=== PATIENT | female | born 1995 | race African-American/Black ===

== ENCOUNTER 2016-10-09 12:00 | Observation (INO) | payer MEDICAID ==
[~2016-10-09] VITALS: Ht 160 cm; Wt 65.8 kg
[2016-10-09] MEDS ORDERED: LACTATED RINGER'S 1,000 ML IV ONE (12:53)
[2016-10-09] MEDS ORDERED: TERBUTALINE SULFATE 1 MG/ML 1ML VIAL SC ONE (12:54)
[2016-10-09] MEDS ORDERED: TERBUTALINE SULFATE 1 MG/ML 1ML VIAL SC SCH (13:00)
[2016-10-09 13:44] LABS: Urine Bilirubin Negative (Negative); Urine Blood Negative /uL (Negative); Urine Color Colorless (Yellow); Urine Glucose Normal (Normal); Urine Ketone Negative (Negative); Urine Nitrite Negative (Negative); Urine RBC 3 /hpf (0 - 4); Urine Squamous Epithelial Cell FEW /hpf (<5); Urine Urobilinogen Normal (Negative)
== END 2016-10-09 15:15 | disposition home or self-care (01) | DRG 566 ==
LOC: LDRP 12:00
PROVIDERS: ADMIT Obstetrics & Gynecology; ATTEND Obstetrics & Gynecology
DX: O23.43 Unspecified infection of urinary tract in pregnancy, third trimester (principal); O60.03 Preterm labor without delivery, third trimester; Z3A.30 30 weeks gestation of pregnancy
CPT/HCPCS: 59025; 81001; 81002; 96360; 96361; 96372; G0378; G0434; J3105; 96365; 96366

== ENCOUNTER 2016-10-14 14:05 | Observation (INO) | payer MEDICAID | END 2016-10-14 15:37 | disposition home or self-care (01) | DRG 566 | LOC: LDRP 14:05 | PROVIDERS: ADMIT Specialist; ATTEND Specialist | DX: O62.9 Abnormality of forces of labor, unspecified (principal); Z3A.31 31 weeks gestation of pregnancy | CPT/HCPCS: 59025; 76815; 81002; G0378 ==

== ENCOUNTER 2016-10-17 19:50 | Observation (INO) | payer MEDICAID ==
[2016-10-17] MEDS ORDERED: TERBUTALINE SULFATE 1 MG/ML 1ML VIAL SC ONE (21:09)
[2016-10-17] MEDS ORDERED: TERBUTALINE SULFATE 1 MG/ML 1ML VIAL SC PRN (21:15)
[2016-10-17 21:22] LABS: Urine Bilirubin Negative (Negative); Urine Blood Negative /uL (Negative); Urine Color Yellow (Yellow); Urine Glucose Normal (Normal); Urine Ketone Negative (Negative); Urine Mucus FEW (None Seen); Urine Nitrite Negative (Negative); Urine RBC 1 /hpf (0 - 4); Urine Squamous Epithelial Cell MOD /hpf (<5); Urine Urobilinogen Normal (Negative); Urine pH 6.5 (5.0-8.0)
== END 2016-10-17 22:05 | disposition home or self-care (01) | DRG 566 ==
LOC: LDRP 19:50
PROVIDERS: ADMIT Obstetrics & Gynecology; ATTEND Obstetrics & Gynecology
DX: O62.9 Abnormality of forces of labor, unspecified (principal); Z3A.31 31 weeks gestation of pregnancy
CPT/HCPCS: 59025; 76815; 81001; 81002; 96372; G0378; J3105

== ENCOUNTER 2016-10-26 17:25 | Observation (INO) | payer MEDICAID ==
[2016-10-26] MEDS ORDERED: NIFEdipine 10 MG CAP ONE (18:08)
[2016-10-26] MEDS ORDERED: NIFEdipine 10 MG CAP PO ONE (18:15)
[2016-10-26] MEDS ORDERED: LACTATED RINGER'S 1,000 ML IV ONE (18:15)
== END 2016-10-26 19:14 | disposition home or self-care (01) | DRG 566 ==
LOC: LDRP 17:25
PROVIDERS: ADMIT Specialist; ATTEND Specialist
DX: O26.893 Other specified pregnancy related conditions, third trimester (principal); M54.9 Dorsalgia, unspecified; Z3A.33 33 weeks gestation of pregnancy
CPT/HCPCS: 59025; 76815; 81002; G0378; 96365

== ENCOUNTER 2016-12-05 01:35 | Inpatient (IN) | payer MEDICAID ==
[2016-12-05] VITALS (16 sets, daily range): BP systolic 100–127; BP diastolic 57–82
[~2016-12-05] VITALS: Ht 160 cm; Wt 68.5 kg
[2016-12-05] MEDS ORDERED: LACTATED RINGER'S 1,000 ML IV SCH ×2 (01:56→08:35)
[2016-12-05] MEDS ORDERED: LACT. RINGERS/OXYTOCIN 20UNITS 1,000 ML IV SCH (01:56)
[2016-12-05] MEDS ORDERED: NALBUPHINE HCL 10 MG/1ml INJECTION IV PRN (02:00)
[2016-12-05] MEDS ORDERED: DERMOPLAST 60ML BOTTLE TOP PRN (02:00)
[2016-12-05] MEDS ORDERED: PHISODERM TOP SOLN 240ML BTL TOP PRN (02:00)
[2016-12-05] MEDS ORDERED: LIDOCAINE 2%HCL (LOCAL ANESTH.) INJ 20ML MDV IJ PRN (02:00)
[2016-12-05] MEDS ORDERED: METHYLERGONOVINE MALEATE 0.2 MG/ML AMP IM PRN (02:00)
[2016-12-05] MEDS ORDERED: WITCH HAZEL-GLYCERIN PAD TOP PRN (02:00)
[2016-12-05 02:24] LABS: Basophils # (auto) 0 uL; Basophils % (auto) 0.3 % (0.0-2.0); DEFINITIVE VIEW TRANSMISSION; Eosinophils # (auto) 0.3 uL; Eosinophils % (auto) 2.5 % (0.0-7.0); Hematocrit 33.3 % (36.0-46.0); Hemoglobin 10.5 g/dL (12.2-16.2); Lymphocytes # (auto) 2.1 uL; Lymphocytes % (auto) 18.5 % (10.0-50.0); Mean Corpuscular Hemoglobin 21.6 pg (28.0-32.0); Mean Corpuscular Hgb Conc. 31.6 g/dL (32.0-36.0); Mean Corpuscular Volume 68.5 fL (80.0-100.0); Mean Platelet Volume 8.5 fL (7.4-10.4); Monocytes # (auto) 1.1 uL; Monocytes % (auto) 9.4 % (0.0-12.0); Neutrophils % (auto) 69.3 % (37.0-80.0); Platelet Count (auto) 322 10^3/uL (140-450); Red Cell Distribution Width 14.2 % (11.6-16.0); White Blood Cell 11.6 10^3/uL (4.4-10.8)
[2016-12-05 02:45] LABS: Albumin 2.5 g/dL (3.4-5.0); BUN/Creatinine Ratio 10.9; Bilirubin, Total 0.3 mg/dL (0.2-1.0); Calcium 8.5 mg/dL (8.5-10.1); Potassium 3.7 mmol/L (3.5-5.1); Total Protein 6.7 g/dL (6.4-8.2)
[2016-12-05 02:58] LABS: INR 0.97 (0.9-1.15); Partial Thromboplastin Time 25.7 sec (22.64-33.71); Prothrombin Time 10.5 sec (9.37-12.3)
[2016-12-05 04:43] LABS: Urine Bilirubin Negative (Negative); Urine Color Yellow (Yellow); Urine Glucose Normal (Normal); Urine Ketone Negative (Negative); Urine Nitrite Negative (Negative); Urine RBC 261 /hpf (0 - 4); Urine Squamous Epithelial Cell MANY /hpf (<5); Urine Urobilinogen Normal (Negative); Urine WBC Clumps PRESENT /hpf (None Seen); Urine pH 7.5 (5.0-8.0)
[2016-12-05 04:44] LABS: Urine Blood 3+ /uL (Negative)
[2016-12-05] MEDS ORDERED: fentaNYL CITRATE 100 MCG/2 ML VL ONE ×2 (07:10→08:51)
[2016-12-05] MEDS ORDERED: MORPHINE SULF(PF) 0.5MG/ML 10ML VIAL ONE (07:10)
[2016-12-05] MEDS ORDERED: MIDAZOLAM HCL 1MG/1ML-2 ML VIAL ONE ×2 (07:42→09:07)
[2016-12-05] MEDS ORDERED: ONDANSETRON HCL 4 MG/2 ML VIAL IV PRN ×2 (08:45)
[2016-12-05] MEDS ORDERED: NALOXONE HCL 0.4 MG/ML VIAL IV PRN (08:45)
[2016-12-05] MEDS ORDERED: KETOROLAC TROMETH 30 MG/ML 1ML VIAL IV PRN (08:45)
[2016-12-05] MEDS ORDERED: DEXAMETHASONE SOD PHOS 10MG/1ML VIAL INJ IV PRN (08:45)
[2016-12-05] MEDS ORDERED: HYDROmorphone HCL 2 MG/ML VL IV PRN (08:45)
[2016-12-05] MEDS ORDERED: diphenhdrAMINE HCL 50 MG/1 ML VL IV PRN (08:45)
[2016-12-05] MEDS ORDERED: LIDOCAINE HCL 2 %PF INJ 10ML AMP IJ ONE (08:50)
[2016-12-05] MEDS ORDERED: ROCURONIUM 10MG/ML 10ML VIAL IV ONE (08:51)
[2016-12-05] MEDS ORDERED: PREN-96 PO (09:22)
[2016-12-05] MEDS: KETOROLAC TROMETH 30 MG/ML 1ML VIAL IV SCH ×2 (12:04→17:37)
[2016-12-05] MEDS ORDERED: LACT. RINGERS/OXYTOCIN 20UNITS 1,000 ML IV ONE (12:06)
[2016-12-05] MEDS: ceFAZolin 1GM/50ML D5W 50 ML IV SCH ×2 (15:19→22:03)
[2016-12-06] VITALS (8 sets, daily range): BP systolic 94–120; BP diastolic 52–72
[2016-12-06] MEDS: KETOROLAC TROMETH 30 MG/ML 1ML VIAL IV SCH ×5 (00:58→19:00)
[2016-12-06] MEDS: ceFAZolin 1GM/50ML D5W 50 ML IV SCH (05:41)
[2016-12-06 08:05] LABS: Basophils # (auto) 0.1 uL; Basophils % (auto) 0.4 % (0.0-2.0); DEFINITIVE VIEW TRANSMISSION; Eosinophils # (auto) 0.3 uL; Hematocrit 32.8 % (36.0-46.0); Hemoglobin 10.5 g/dL (12.2-16.2); Lymphocytes # (auto) 2.1 uL; Mean Corpuscular Hemoglobin 21.9 pg (28.0-32.0); Mean Corpuscular Volume 68.3 fL (80.0-100.0); Mean Platelet Volume 8.6 fL (7.4-10.4); Monocytes # (auto) 1.1 uL; Monocytes % (auto) 7.9 % (0.0-12.0); Neutrophils # (auto) 9.9 uL; Neutrophils % (auto) 73.7 % (37.0-80.0); Platelet Count (auto) 318 10^3/uL (140-450); Red Cell Distribution Width 14.6 % (11.6-16.0); White Blood Cell 13.4 10^3/uL (4.4-10.8)
[2016-12-06] MEDS ORDERED: BISACODYL 10 MG RECT SUPP PR PRN (08:45)
[2016-12-06] MEDS: HYDROcodone-ACET 10/325MG TAB PO PRN ×2 (09:45→19:35)
[2016-12-06] MEDS: FERROUS SULFATE 325 MG TAB PO SCH (09:46)
[2016-12-06] MEDS: DOCUSATE CALCIUM 240 MG CAP PO SCH (09:46)
[2016-12-06] MEDS: DOCUSATE SOD 100 MG CAP PO SCH (09:46)
[2016-12-06] MEDS: SIMETHICONE 80 MG CHEWABLE TABLET PO SCH ×2 (12:00→17:40)
[2016-12-06] MEDS: IBUPROFEN 800 MG TAB PO PRN (17:50)
[2016-12-07] MEDS: SIMETHICONE 80 MG CHEWABLE TABLET PO SCH ×5 (00:10→21:37)
[2016-12-07] MEDS: DOCUSATE SOD 100 MG CAP PO SCH ×3 (00:10→21:37)
[2016-12-07] MEDS: FERROUS SULFATE 325 MG TAB PO SCH ×3 (00:10→21:37)
[2016-12-07 03:30] VITALS: BP 103/63
[2016-12-07] MEDS: IBUPROFEN 800 MG TAB PO PRN ×3 (03:36→23:37)
[2016-12-07 08:22] VITALS: BP 121/66
[2016-12-07] MEDS: HYDROcodone-ACET 10/325MG TAB PO PRN ×2 (08:50→19:09)
[2016-12-07] MEDS: DOCUSATE CALCIUM 240 MG CAP PO SCH (09:32)
[2016-12-07 20:30] VITALS: BP 120/73
[2016-12-07 23:26] VITALS: BP 123/80
[2016-12-08] MEDS: HYDROcodone-ACET 10/325MG TAB PO PRN ×2 (01:00→09:48)
[2016-12-08 03:00] VITALS: BP 115/65
[2016-12-08] MEDS: SIMETHICONE 80 MG CHEWABLE TABLET PO SCH ×2 (06:11→12:30)
[2016-12-08] MEDS ORDERED: TETANUS-DIPTH-ACEL PERTUSSIS 0.5ML SYRG IM ONE (07:15)
[2016-12-08 07:37] VITALS: BP 115/71
[2016-12-08] MEDS: DOCUSATE SOD 100 MG CAP PO SCH (10:20)
[2016-12-08] MEDS: FERROUS SULFATE 325 MG TAB PO SCH (10:20)
[2016-12-08] MEDS: DOCUSATE CALCIUM 240 MG CAP PO SCH (10:22)
[2016-12-08 12:00] VITALS: BP 126/70
== END 2016-12-08 13:10 | disposition home or self-care (01) | DRG 540 ==
LOC: OBSVTOIN 01:35 → LDRP 01:35
PROVIDERS: ADMIT Obstetrics & Gynecology; ATTEND Obstetrics & Gynecology
PROC: 30233S1 Transfusion of Nonautologous Globulin into Peripheral Vein, Percutaneous Approach (ICD-10-PCS; 2016-12-05)
PROC: 10D00Z1 Extraction of Products of Conception, Low, Open Approach (ICD-10-PCS; principal; 2016-12-05 07:29)
DX: O32.1XX0 Maternal care for breech presentation, not applicable or unspecified (principal); Z23 Encounter for immunization; Z37.0 Single live birth; Z3A.38 38 weeks gestation of pregnancy
CPT/HCPCS: 36415; 51702; 59025; 76815; 80053; 81001; 85025; 85610; 85730; 86850; 86870; 86900; 86901; 90384; 90715; 96361; 96366; 96372; 96375; G0434; J0690; J1885; J2250; J2405; J2590